=== PATIENT | female | born 1950 | race Caucasian/White ===

== ENCOUNTER → 2019-11-18 | Outpatient (REF) | payer MEDICARE | LOC: M LAB REF 10:30 | PROVIDERS: ATTEND Dermatology | DX: C44.310 Basal cell carcinoma of skin of unspecified parts of face (principal); L57.8 Other skin changes due to chronic exposure to nonionizing radiation ==

== ENCOUNTER → 2020-03-10 | Outpatient (REF) | payer MEDICARE | LOC: M LAB REF 08:12 | PROVIDERS: ATTEND Dermatology | DX: C44.319 Basal cell carcinoma of skin of other parts of face (principal) ==

== ENCOUNTER → 2020-06-07 | Outpatient (CLI) | payer MEDICARE ==
--- NOTE | 2020-06-07 12:36 | REPPI ---
INDICATION: M25.50 POLYARTHRALGIA COMPARISON: None. TECHNIQUE: AP, lateral, bilateral oblique, and coned-down views of the lumbar spine. FINDINGS: Early advanced degenerative changes at L4-5 and L5-S1 noted with moderate multilevel degenerative changes throughout the remainder of the lumbar spine. There is chronic grade 1 anterolisthesis at the L4-5 level of approximately 5 mm with endplate sclerosis and hypertrophic facet changes. There is endplate sclerosis with disc space narrowing and hypertrophic facet changes at the L5-S1 level. Advanced degenerative changes are also identified at the T11-12 level with endplate sclerosis, bridging osteophyte and disc space narrowing. IMPRESSION: Areas of degenerative spondylosis as described above. No acute fracture/compression injury. <Electronically signed by Chato Doan > 06/07/20 [id number]
--- NOTE | 2020-06-07 12:37 | REPPI ---
INDICATION: M25.50 POLYARTHRALGIA. COMPARISON: None. TECHNIQUE: Four views of the bilateral sacroiliac joints. FINDINGS: The bilateral sacroiliac joints are symmetric and essentially age-appropriate. No significant periarticular sclerosis or fusion. No evidence for subluxation. Surrounding osseous structures demonstrate age-related degenerative changes. IMPRESSION: Symmetric age-related changes to the bilateral sacroiliac joints. <Electronically signed by Chato Doan > 06/07/20 [id number]
--- NOTE | 2020-06-07 12:37 | REPPI ---
INDICATION: M25.50 POLYARTHRALGIA. COMPARISON: None. TECHNIQUE: AP and frogleg views of bilateral hips performed. FINDINGS: No fracture or dislocation is seen. There is mild joint space narrowing, subchondral sclerosis and spurring at both hip joints in a fairly symmetrical fashion. Mild tendinous calcifications are seen along the right ischial tuberosity. There are also mild tendinous calcifications at the greater trochanters bilaterally. IMPRESSION: Mild bilateral arthritic changes symmetrically. <Electronically signed by Woodrow Fernández > 06/07/20 [id number]
--- NOTE | 2020-06-07 12:40 | REPPI ---
INDICATION: M25.50 POLYARTHRALGIA COMPARISON: None. TECHNIQUE: AP, lateral, bilateral oblique views right and left hand. FINDINGS: Right hand demonstrates moderate arthritic changes involving the interphalangeal joints including subchondral sclerosis, joint space narrowing, and marginal spurring primarily involving the 1st interphalangeal joint, 2nd proximal and distal interphalangeal joints, 3rd distal interphalangeal joint and 4th proximal interphalangeal joint. No periarticular lucencies, significant swelling, or loose bodies are identified. No evidence for acute or healed injury. Left hand demonstrates mild to moderate arthritic changes involving the interphalangeal joints with subchondral sclerosis and mild joint space narrowing. There is prior fixation at the 1st interphalangeal joint. No periarticular lucencies, significant swelling or loose bodies are identified. IMPRESSION: Mild to moderate arthritic changes primarily involving the bilateral interphalangeal joints (right greater than left). Prior surgical intervention and fixation at the left 1st interphalangeal joint noted. No acute fracture or dislocation. <Electronically signed by Chato Doan > 06/07/20 [id number]
--- NOTE | 2020-06-07 12:41 | REPPI ---
INDICATION: M25.50 POLYARTHRALGIA COMPARISON: None. TECHNIQUE: Five views of bilateral knees performed. FINDINGS: There is no evidence of acute fracture, dislocation, or intrinsic bone disease.On the left there is medial joint space narrowing and subchondral sclerosis of a mild degree. There is mild diffuse spurring. There is a moderate-sized spur at the posterior tibial plateau. There is a small joint effusion. There is moderate spurring of the medial and lateral patellar facets. There is an oval calcific body at the lateral margin of the patellofemoral joint measuring 8 x 3 mm. There is mild narrowing and subchondral sclerosis of the lateral patellofemoral joint. On the low right there is moderate medial joint space narrowing with subchondral sclerosis. There is moderate diffuse spurring. There does not appear to be significant joint effusion. IMPRESSION: No fracture or dislocation. Moderate bilateral arthritic changes as discussed in detail above. <Electronically signed by Woodrow Fernández > 06/07/20 [id number]
== END ==
LOC: M PLAIMG 10:33
PROVIDERS: ATTEND Internal Medicine
DX: M19.041 Primary osteoarthritis, right hand (principal); M19.042 Primary osteoarthritis, left hand; M16.0 Bilateral primary osteoarthritis of hip; M17.0 Bilateral primary osteoarthritis of knee; M25.462 Effusion, left knee; M51.36 Other intervertebral disc degeneration, lumbar region; M51.37 Other intervertebral disc degeneration, lumbosacral region; M25.50 Pain in unspecified joint
CPT/HCPCS: 72110; 72202; 73130; 73502; 73564; 82550; 85652; 86038; 86140; 86160; 86200; 86225; 86235; 86255; 86431; G0463

== ENCOUNTER → 2020-06-07 | Outpatient (REF) | payer MEDICARE ==
[2020-06-07 13:48] LABS: COMPLEMENT C3 154 MG/DL (90-180); COMPLEMENT C4 24 MG/DL (10-40); CPK CREATINE PHOSPHOKINASE 27 U/L (26-192); RHEUMATOID FACTOR QUANT < 10.0 IU/ML (<15.0)
== END ==
LOC: M SFHCRHEU 10:03
PROVIDERS: ATTEND Internal Medicine
DX: R76.8 Other specified abnormal immunological findings in serum (principal)

== ENCOUNTER → 2024-06-29 | Outpatient (REF) | payer MEDICARE ==
[~2024-06-29] MED LIST: ATOR1TAB21; LEVO75TA4; LOSA50TA5; NOXI1TAB PO
[2024-06-29 10:25] LABS: EOS # 0.1 10^3/uL (0.0-0.5); EOS % 2.2 % (0.0-3.0); HEMOGLOBIN 13.2 g/dl (12.0-15.5); LYMPH # 0.9 10^3/uL (1.5-5.0); LYMPH % 29.3 % (24.0-44.0); MEAN CORPUSCULAR HEMOGLOBIN 30.5 pg (27.0-33.0); MEAN CORPUSCULAR HGB CONC 33.8 g/dl (32.0-36.5); MEAN CORPUSCULAR VOLUME 90.1 fl (80.0-96.0); MONO # 0.3 10^3/uL (0.0-0.8); MONO % 10.5 % (2.0-8.0); NEUTROPHILS # 1.8 10^3/uL (1.5-8.5); NEUTROPHILS % 56.7 % (36.0-66.0); PLATELET COUNT, AUTOMATED 116 10^3/uL (150-450); RED BLOOD COUNT 4.33 10^6/uL (4.00-5.40); WHITE BLOOD COUNT 3.1 10^3/uL (4.0-10.0)
[2024-06-29 10:59] LABS: TOTAL IRON BINDING CAPACITY 297 UG/DL (250-425)
[2024-06-29 11:00] LABS: ALBUMIN 3.5 G/DL (3.2-5.2); ALKALINE PHOSPHATASE 124 U/L (35-104); ALT/SGPT 28 U/L (7.0-40); AST/SGOT 29 U/L (<34); BILIRUBIN,TOTAL 0.7 MG/DL (0.3-1.2); BLOOD UREA NITROGEN 19 MG/DL (9-23); CALCIUM LEVEL 9.5 MG/DL (8.3-10.6); CARBON DIOXIDE LEVEL 28 MMOL/L (20-31); CHLORIDE LEVEL 106 MMOL/L (98-107); CHOLESTEROL LEVEL 185 MG/DL (<200); CREATININE FOR GFR 0.85 MG/DL (0.55-1.30); GLOMERULAR FILTRATION RATE > 60.0 (>39); GLUCOSE, FASTING 114 MG/DL (74-106); IRON (FE) 83 UG/DL (50-170); LDL CHOLESTEROL 112.4 MG/DL (<100); PERCENT SATURATION 27.9 % (13.2-45.0); SODIUM LEVEL 143 MMOL/L (136-145); TRIGLYCERIDES LEVEL 153 MG/DL (<150)
[2024-06-29 11:02] LABS: HEMOGLOBIN A1c 5.4 % (4.0-6.0)
[2024-06-29 11:06] LABS: FREE T4 1.17 NG/DL (0.89-1.76); THYROID STIMULATING HORMONE 1.435 uIU/ML (0.55-4.78)
[2024-06-29 11:07] LABS: VITAMIN B12 LEVEL 465 PG/ML (211-911)
== END ==
LOC: M LAB REF 10:06
PROVIDERS: ATTEND Physician Assistant
DX: L20.9 Atopic dermatitis, unspecified (principal); E03.8 Other specified hypothyroidism; E78.00 Pure hypercholesterolemia, unspecified; I10 Essential (primary) hypertension; E78.5 Hyperlipidemia, unspecified; R73.9 Hyperglycemia, unspecified; R25.2 Cramp and spasm

== ENCOUNTER → 2025-03-25 | Outpatient (CLI) | payer MEDICARE ==
[~2025-03-25] MED LIST changes: +CLOT1CRE56
[2025-03-25 08:29] VITALS: TEMP 97.6
[2025-03-25 09:06] VITALS: BP 153/76; O2SAT 97
[2025-03-25] MEDS: LIDOCAINE 1% MDV 20 ML VIAL SC STA (09:17)
[2025-03-25 09:19] LABS: BASO # 0.0 10^3/uL (0.0-0.2); BASO % 0.4 % (0.0-1.0); EOS # 0.1 10^3/uL (0.0-0.5); EOS % 2.7 % (0.0-3.0); LYMPH # 0.6 10^3/uL (1.5-5.0); LYMPH % 23.9 % (24.0-44.0); MONO # 0.4 10^3/uL (0.0-0.8); MONO % 15.2 % (2.0-8.0); NEUTROPHILS # 1.5 10^3/uL (1.5-8.5); NEUTROPHILS % 57.4 % (36.0-66.0); PLATELET COUNT, AUTOMATED 114 10^3/uL (150-450)
== END ==
LOC: M IRPRO 08:18
DX: D72.819 Decreased white blood cell count, unspecified (principal)